=== PATIENT | male | born 1950 | race African-American/Black ===

== ENCOUNTER 2022-07-01 09:35 | Inpatient (IN) ==
[2022-07-01] MEDS ORDERED: ASPIRIN 325 MG TABLET PO STA (10:09)
[2022-07-01 10:12] LABS: Basophils # 0.1 10*3/uL (0.0-0.2); Basophils % 0.9 % (0.0-0.8); Eosinophils # 0.5 10*3/uL (0.0-0.87); Eosinophils % 4.1 % (0.00-10.9); Hematocrit 32.8 VOL% (42.0-52.0); Hemoglobin 10.4 GM/DL (14.0-18.0); Immature Granulocytes % 0.2 %; Immature Granulocytes Absolute 0.03 #; Lymphocytes # 3.2 10*3/uL (1.4-4.0); Lymphocytes % 25.7 % (21.2-54.2); Mean Corpuscular HGB Conc 31.7 GM/DL (32-36); Mean Corpuscular Volume 93.4 FL (87-102); Monocytes # 0.9 10*3/uL (0.11-0.8); Monocytes % 7.3 % (1.7-12.7); Neutrophils % 61.8 % (38.7-73.9); Platelet Count 474 T/CUMM (130-400); Red Blood Count 3.51 MC/CUMM (3.8-5.5); Red Cell Distribution Width 14.4 % (9.3-17.3); White Blood Count 12.31 T/CUMM (4-12)
[2022-07-01 10:37] LABS: Alanine Aminotransferase 25 U/L (16-61); Albumin 2.6 G/DL (3.4-5.0); Alkaline Phosphatase 114 U/L (45-117); Aspartate Amino Transferase 25 U/L (0-37); Bilirubin,Total < 0.39 MG/DL (0.20-1.00); Blood Urea Nitrogen 23 MG/DL (7-18); Carbon Dioxide 28 MMOL/L (21-32); Chloride 111 MMOL/L (98-107); Glucose 62 MG/DL (74-106); Potassium 5.1 MMOL/L (3.5-5.1); Sodium 143 MMOL/L (136-145); Total Protein 6.2 G/DL (6.4-8.2)
[2022-07-01] MEDS ORDERED: DEXTROSE 50% 25 GM/50 ML SYRINGE IV ONE (11:14)
[2022-07-01] MEDS ORDERED: DEXTROSE 5% NACL 0.45% 1,000 ML IV SCH ×2 (11:30→16:00)
[2022-07-01] MEDS ORDERED: DEXTROSE 50% 25 GM/50 ML SYRINGE IV STA (11:31)
[2022-07-01] MEDS ORDERED: ONDANSETRON 4 MG/2 ML VIAL IV PRN (12:33)
[2022-07-01] MEDS ORDERED: MORPHINE 2 MG/1 ML SYRINGE IV PRN (12:33)
[2022-07-01] MEDS ORDERED: GLUCAGON 1 MG VIAL IM PRN (12:33)
[2022-07-01] MEDS ORDERED: DEXTROSE 10% 250 ML BAG IV PRN (12:51)
[2022-07-01] MEDS ORDERED: LACTATED RINGERS 1,000 ML IV SCH (13:00)
[2022-07-01] MEDS: ENOXAPARIN 100 MG/ML SYRINGE SUBCUT SCH (14:02)
[2022-07-01] MEDS ORDERED: DEXTROSE 50% 25 GM/50 ML VIAL IV ONE (15:39)
[2022-07-01] MEDS: DEXTROSE 5% NACL 0.45% 1,000 ML IV SCH (16:00)
[2022-07-01 16:09] LABS: Hyaline Casts,Urine 1 /LPF (0-3); RBC,Urine 2 /HPF (0-4); Urine Appearance Clear (Clear); Urine Color Yellow (Yellow); Urine pH 7.5 (4.5-8.0)
[2022-07-01 16:10] LABS: Bilirubin,Urine Negative (Negative); Blood, Urine Trace mg/dL (Negative); Glucose,Urine (UA) Negative (Negative); Ketones,Urine Negative (Negative); Nitrite,Urine Negative (Negative); Protein,Urine >=300 mg/dL (Negative); Urine Urobilinogen 0.2 eU/dL (<2.0)
[2022-07-01] MEDS ORDERED: INSULIN LISPRO 100 UNIT/ML SUBCUT SCH (16:30)
[2022-07-01] MEDS: ROSUVASTATIN 20 MG TABLET PO SCH (21:13)
[2022-07-01] MEDS: METOPROLOL TARTRATE 25 MG TABLET PO SCH (21:13)
[2022-07-02] MEDS ORDERED: LORazepam 2 MG/1 ML VIAL IV ONE (00:30)
[2022-07-02] MEDS: ENOXAPARIN 100 MG/ML SYRINGE SUBCUT SCH (00:40)
[2022-07-02] MEDS: DEXTROSE 5% NACL 0.45% 1,000 ML IV SCH ×3 (02:27→23:32)
[2022-07-02 05:55] LABS: Basophils # 0.1 10*3/uL (0.0-0.2); Basophils % 0.8 % (0.0-0.8); Eosinophils # 0.6 10*3/uL (0.0-0.87); Eosinophils % 4.2 % (0.00-10.9); Hematocrit 32.8 VOL% (42.0-52.0); Hemoglobin 10.2 GM/DL (14.0-18.0); Immature Granulocytes % 0.6 %; Immature Granulocytes Absolute 0.08 #; Lymphocytes # 3.2 10*3/uL (1.4-4.0); Lymphocytes % 22.1 % (21.2-54.2); Mean Corpuscular HGB Conc 31.1 GM/DL (32-36); Mean Corpuscular Volume 95.3 FL (87-102); Mean Platelet Volume 10.1 FL (9.6-12.0); Monocytes # 1.1 10*3/uL (0.11-0.8); Monocytes % 7.3 % (1.7-12.7); Platelet Count 470 T/CUMM (130-400); Red Blood Count 3.44 MC/CUMM (3.8-5.5); Red Cell Distribution Width 14.6 % (9.3-17.3); White Blood Count 14.44 T/CUMM (4-12)
[2022-07-02 06:15] LABS: % Iron Saturation 7.5 % (18-50)
[2022-07-02 06:20] LABS: Albumin 2.4 G/DL (3.4-5.0); Bilirubin,Total 0.4 MG/DL (0.20-1.00); Calcium 9.2 MG/DL (8.5-10.1); Osmolality,Calculated 287.1 MOS/KG (273-304); Total Protein 6.5 G/DL (6.4-8.2)
[2022-07-02 06:36] LABS: Risk Ratio 4.32
[2022-07-02] MEDS ORDERED: QUEtiapine 25 MG TABLET PO ONE (08:55)
[2022-07-02] MEDS ORDERED: chlordiazePOXIDE 25 MG CAPSULE PO SCH (09:00)
[2022-07-02] MEDS: ENOXAPARIN 40 MG/0.4 ML SYRINGE SUBCUT SCH (09:32)
[2022-07-02] MEDS: METOPROLOL TARTRATE 25 MG TABLET PO SCH ×2 (09:38→22:22)
[2022-07-02] MEDS: OLANZapine 5 MG TABLET PO SCH (09:38)
[2022-07-02] MEDS: GABAPENTIN 400 MG CAPSULE PO SCH ×2 (09:38→22:22)
[2022-07-02] MEDS: ASPIRIN EC 325 MG TABLET PO SCH (09:38)
[2022-07-02] MEDS: PANTOPRAZOLE 40 MG TABLET PO SCH (09:39)
[2022-07-02] MEDS: LOSARTAN 25 MG TABLET PO SCH (09:40)
[2022-07-02] MEDS ORDERED: ZIPRASIDONE 20 MG/1 ML VIAL IM ONE (09:51)
[2022-07-02] MEDS: QUEtiapine 25 MG TABLET PO SCH (22:22)
[2022-07-02] MEDS: ROSUVASTATIN 20 MG TABLET PO SCH (22:22)
[2022-07-03 05:13] LABS: Basophils # 0.1 10*3/uL (0.0-0.2); Basophils % 0.7 % (0.0-0.8); Eosinophils # 0.7 10*3/uL (0.0-0.87); Hematocrit 26.4 VOL% (42.0-52.0); Hemoglobin 8.6 GM/DL (14.0-18.0); Immature Granulocytes % 0.3 %; Immature Granulocytes Absolute 0.03 #; Lymphocytes # 2.5 10*3/uL (1.4-4.0); Lymphocytes % 23.6 % (21.2-54.2); Mean Corpuscular HGB Conc 32.6 GM/DL (32-36); Mean Corpuscular Volume 93.6 FL (87-102); Monocytes # 0.8 10*3/uL (0.11-0.8); Monocytes % 7.9 % (1.7-12.7); Neutrophils % 60.5 % (38.7-73.9); Platelet Count 401 T/CUMM (130-400); Red Blood Count 2.82 MC/CUMM (3.8-5.5); Red Cell Distribution Width 14.5 % (9.3-17.3); White Blood Count 10.41 T/CUMM (4-12)
[2022-07-03 05:35] LABS: Calcium 8.3 MG/DL (8.5-10.1); Osmolality,Calculated 289.8 MOS/KG (273-304); Potassium 4.2 MMOL/L (3.5-5.1)
[2022-07-03] MEDS: GABAPENTIN 400 MG CAPSULE PO SCH ×2 (08:51→21:04)
[2022-07-03] MEDS: PANTOPRAZOLE 40 MG TABLET PO SCH (08:52)
[2022-07-03] MEDS: METOPROLOL TARTRATE 25 MG TABLET PO SCH ×2 (08:52→21:04)
[2022-07-03] MEDS: ASPIRIN EC 325 MG TABLET PO SCH (08:52)
[2022-07-03] MEDS: OLANZapine 5 MG TABLET PO SCH (08:52)
[2022-07-03] MEDS: LOSARTAN 25 MG TABLET PO SCH (08:53)
[2022-07-03] MEDS: ENOXAPARIN 40 MG/0.4 ML SYRINGE SUBCUT SCH (08:54)
[2022-07-03] MEDS: DEXTROSE 5% NACL 0.45% 1,000 ML IV SCH (11:56)
[2022-07-03 13:55] LABS: Hematocrit 30.3 VOL% (42.0-52.0); Hemoglobin 9.9 GM/DL (14.0-18.0)
[2022-07-03] MEDS: ROSUVASTATIN 20 MG TABLET PO SCH (21:03)
[2022-07-03] MEDS: QUEtiapine 25 MG TABLET PO SCH (21:04)
[2022-07-04 06:04] LABS: Basophils # 0.1 10*3/uL (0.0-0.2); Eosinophils # 0.9 10*3/uL (0.0-0.87); Eosinophils % 8.1 % (0.00-10.9); Hematocrit 29.3 VOL% (42.0-52.0); Hemoglobin 9.3 GM/DL (14.0-18.0); Immature Granulocytes % 0.6 %; Immature Granulocytes Absolute 0.06 #; Lymphocytes # 2.5 10*3/uL (1.4-4.0); Mean Corpuscular HGB Conc 31.7 GM/DL (32-36); Mean Corpuscular Volume 94.5 FL (87-102); Mean Platelet Volume 10.1 FL (9.6-12.0); Monocytes # 0.9 10*3/uL (0.11-0.8); Monocytes % 8.5 % (1.7-12.7); Neutrophils % 57.8 % (38.7-73.9); Platelet Count 411 T/CUMM (130-400); Red Cell Distribution Width 14.4 % (9.3-17.3); White Blood Count 10.52 T/CUMM (4-12)
[2022-07-04 06:27] LABS: Calcium 8.5 MG/DL (8.5-10.1); Osmolality,Calculated 295.8 MOS/KG (273-304); Potassium 4.4 MMOL/L (3.5-5.1)
[2022-07-04 09:00] VITALS: BP 169/79
[2022-07-04] MEDS: ASPIRIN EC 325 MG TABLET PO SCH (09:02)
[2022-07-04] MEDS: GABAPENTIN 400 MG CAPSULE PO SCH (09:02)
[2022-07-04] MEDS: PANTOPRAZOLE 40 MG TABLET PO SCH (09:02)
[2022-07-04] MEDS: LOSARTAN 25 MG TABLET PO SCH (09:03)
[2022-07-04] MEDS: METOPROLOL TARTRATE 25 MG TABLET PO SCH (09:04)
[2022-07-04] MEDS: OLANZapine 5 MG TABLET PO SCH (09:04)
[2022-07-04] MEDS: ENOXAPARIN 40 MG/0.4 ML SYRINGE SUBCUT SCH (09:04)
== END 2022-07-04 10:40 | disposition home or self-care (01) | DRG 884 ==
LOC: N.2W 09:35 → N.ED 09:35 → N.2W 16:09
PROVIDERS: ADMIT Internal Medicine; ATTEND Internal Medicine